=== PATIENT | female | born 1990 | race Caucasian/White ===

== ENCOUNTER → 2016-10-10 | Outpatient (CLI) | payer MEDICAID ==
--- NOTE | 2016-10-10 15:52 | DX ---
Chest, Two Views 1421 hours History: R 06.02, shortness of breath. Comparison: None. Findings: Cardiac silhouette is within normal range. No pneumonia, congestive heart failure, pleura l effusion, or pneumothorax. Impression: No pneumonia.
== END ==
LOC: BRMIMAGING 14:13
PROVIDERS: ATTEND Family Medicine
DX: R06.02 Shortness of breath (principal)
CPT/HCPCS: 71020-PO